=== PATIENT | male | born 1965 | race Caucasian/White ===

== ENCOUNTER 2019-01-30 05:17 | Inpatient (IN) | payer MEDICAID ==
[2019-01-29 15:09] LABS: BASOPHILS % (AUTO) 0.5 % (0-1); EOSINOPHILS % (AUTO) 0.6 % (0-6); LYMPHOCYTES # (AUTO) 2.1 X10'3 (1.1-4.8); LYMPHOCYTES % (AUTO) 31.3 % (21-51); MEAN CORPUSCULAR HEMOGLOBIN 28.5 PG (27.0-31.0); MEAN CORPUSCULAR HGB CONC 33.9 g/dL (33.0-36.5); MEAN CORPUSCULAR VOLUME 83.9 FL (78-98); MEAN PLATELET VOLUME 7.3 FL (7.4-10.4); MONOCYTES # (AUTO) 0.4 X10'3 (0-0.9); MONOCYTES % (AUTO) 6.1 % (2-12); NEUTROPHILS # (AUTO) 4.2 X10'3 (1.8-7.7); NEUTROPHILS % (AUTO) 61.5 % (42-75); PRE OP HEMATOCRIT 42.7 % (42.0-52.0); PRE OP HEMOGLOBIN 14.5 g/dL (14.0-17.9); PRE OP PLATELET COUNT 272 X10'3 (140-440); RED BLOOD COUNT 5.08 X10'6 (4.70-6.10); RED CELL DISTRIBUTION WIDTH 14.2 % (11.5-14.5)
[2019-01-29 15:16] LABS: PRE OP PROTIME 10.1 SECONDS (9.0-12.0)
[2019-01-29 15:22] LABS: ALBUMIN 4.2 G/DL (3.4-5.0); ALBUMIN/GLOBULIN RATIO 1.2 (1.1-1.5); ALKALINE PHOSPHATASE 66 IU/L (46-116); BLOOD UREA NITROGEN 18 MG/DL (7-18); BUN/CREATININE RATIO 16.2 (5.4-32.0); CHLORIDE 105 MMOL/L (99-107); CREATININE 1.11 MG/DL (0.60-1.10); PRE OP ALT 36 U/L (30-65); PRE OP ANION GAP 11 (8-16); PRE OP AST 21 U/L (10-37); PRE OP BILIRUB, TOTAL 0.9 MG/DL (0.0-1.0); PRE OP GLUCOSE 91 MG/DL (70-104); PRE OP POTASSIUM 3.7 MMOL/L (3.4-5.1); PRE OP SODIUM 142 MMOL/L (135-145); TOTAL CARBON DIOXIDE 25.6 MMOL/L (24-32); TOTAL PROTEIN 7.8 G/DL (6.4-8.2); eGFR 69 ML/MIN
[~2019-01-30] VITALS: Ht 188 cm; Wt 135.6 kg
[2019-01-30] VITALS (16 sets, daily range): BP systolic 104–195; BP diastolic 50–112
[~2019-01-30 05:17] MED LIST: LISI40TA4 PO; LORA1TAB PO; NICO-731 TOP
[2019-01-30] MEDS ORDERED: famotidine 20mg tablet PO ONE (05:30)
[2019-01-30] MEDS ORDERED: ceFAZolin 1GM/D5W- ADD-VANTAGE 50 ML IV ONE (05:30)
[2019-01-30] MEDS ORDERED: cefazolin/dext.iso 2gm/50ml 50 ML IV ONE (05:30)
[2019-01-30] MEDS ORDERED: albuterol 2.5 MG/3 ML nebule NEB ONE (05:30)
[2019-01-30] MEDS ORDERED: LIDOcaine 1% (10mg/ml) 2ml vial ONE (06:04)
[2019-01-30] MEDS: ringers solution, lacted 1,000 ML IV SCH (06:11)
[2019-01-30] MEDS ORDERED: pneumococcal 23-VAL P-sac vacc 25 mcg/0.5ml vial IMVAC ONE (07:15)
[2019-01-30] MEDS ORDERED: MIDAZolam 5mg/5ml vial ONE (09:02)
[2019-01-30] MEDS ORDERED: fentaNYL /PF 50mcg/ml 5ml ampule ONE ×2 (09:03)
[2019-01-30] MEDS ORDERED: LIDOcaine 2% (20mg/ml) 5ml vial ONE (09:03)
[2019-01-30] MEDS ORDERED: rocuronium 10mg/ml inj IV ONE (09:03)
[2019-01-30] MEDS ORDERED: propofol inj 20 ML IV ONE (09:03)
[2019-01-30] MEDS ORDERED: neostigmine methylsulfate 1 MG/ML 10ml vial ONE (09:25)
[2019-01-30] MEDS ORDERED: sevoflurane 250ml liquid IH ONE (09:25)
[2019-01-30] MEDS ORDERED: glycopyrrolate 0.2mg/ml inj ONE (09:25)
[2019-01-30] MEDS ORDERED: ondansetron/PF 4mg/2ml inj ONE (09:25)
[2019-01-30] MEDS ORDERED: ringers solution, lacted 1,000 ML IV SCH (09:29)
[2019-01-30] MEDS ORDERED: ondansetron/PF 4mg/2ml inj IV PRN ×2 (09:30→14:30)
[2019-01-30] MEDS ORDERED: proCHLORperazine 10 MG/2 ml inj IV PRN (09:30)
[2019-01-30] MEDS ORDERED: morphine 4 MG/ML inj SYRINge IV PRN ×4 (09:30→14:30)
[2019-01-30] MEDS ORDERED: meperidine/PF 25mg/ml syringe IV PRN ×3 (09:30)
[2019-01-30] MEDS ORDERED: dexamethasone sod phosphate 4mg/ml inj. ONE (10:35)
[2019-01-30] MEDS ORDERED: ePHEDrine 50MG/ML INJ. ONE (10:35)
[2019-01-30] MEDS ORDERED: BUPIVAcaine 0.5% inj/PF 30 ML ONE (11:09)
[2019-01-30] MEDS ORDERED: labetalol 20mg/4ml (5mg/ml) syringe IV ONE (11:24)
[2019-01-30] MEDS ORDERED: pancuronium br 1mg/ml inj IV ONE (13:04)
[2019-01-30] MEDS ORDERED: morphine 10mg/ml inj. ONE (13:30)
[2019-01-30] MEDS ORDERED: BUPIVAcaine/PF 2.5 mg/ml (0.25%) 30ml vial ONE (13:37)
[2019-01-30] MEDS ORDERED: acetaminophen 1,000mg/100ml IV 100 ML IV ONE (14:11)
[2019-01-30] MEDS ORDERED: ketorolac trometh. 30mg/ml inj. ONE (14:12)
[2019-01-30] MEDS ORDERED: NALOXONE IV PRN (14:15)
[2019-01-30] MEDS ORDERED: NS IV PRN (14:15)
[2019-01-30] MEDS ORDERED: MORPHINE EPI SCH ×3 (14:20→23:17)
[2019-01-30] MEDS ORDERED: [UNRECOGNIZED DRUG - OTHER] EPI SCH ×3 (14:20→23:17)
[2019-01-30] MEDS ORDERED: BUPIVACAINE EPI SCH ×3 (14:20→23:17)
[2019-01-30] MEDS ORDERED: naloxone 0.4 mg/ml inj IV PRN (14:30)
[2019-01-30] MEDS ORDERED: CADD PCA waste documentation MC PRN (14:30)
[2019-01-30] MEDS ORDERED: metoclopramide 5 mg/ml inj IV PRN (14:30)
[2019-01-30] MEDS ORDERED: albuterol 2.5 MG/3 ML nebule NEB PRN (14:30)
--- NOTE | 2019-01-30 14:40 | NUR ---
ADMITTED TO PACU FROM OR ACCOMPANIED BY ANESTHESIA. INTIAL PHYSICAL ASSESSMENT DONE AND RECORDED. AWAKE AND RESPONSE ON ARRIVE YO PACU, REPORT RECEIVED FROM ANESTHESIA.
[2019-01-30 14:55] LABS: ABG BASE EXCESS -3.9 mmol/L (-2.0-3.0); ABG HCO3 21.5 mmol/L (22.0-26.0); ABG OXYGEN SATURATION 98.4 % (95-98); ABG PCO2 (T) 40.4 mmHg (35.0-45.0); ABG PH (T) 7.344 (7.350-7.450); ABG PO2 (T) 136.6 mmHg (83-108); FCOHb 0.4 % (0.5-1.5); FLOW 10 L/min; FMetHb 0.2 % (0.3-1.12); FO2Hb 97.8 % (94-100); RESPIRATORY RATE (OBSERVED) 12 b/min; TOTAL HEMOGLOBIN 14.2 G/dl (14.0-17.9)
[2019-01-30] MEDS: ceFAZolin 1GM/D5W- ADD-VANTAGE 50 ML IV SCH (14:59)
--- NOTE | 2019-01-30 15:16 | NUR ---
Patient is coming to room ICU 2038. I have received report from Valentina OLIVA and had the opportunity to ask questions and assume patient care.
--- NOTE | 2019-01-30 15:40 | NUR ---
PACU DISCHARGE CRITERIA MET, REPORT GIVEN TO ICU. DENIES PAIN OR DISCOMFORT AT THIS TIME, TRANSFERRED TO ROOM IN STABLE GOOD CONDITION.
[2019-01-30] MEDS: potassium Cl 20mEq in D5-NS 1,000 ML IV SCH (17:00)
--- NOTE | 2019-01-30 18:22 | NUR ---
Problems reprioritized. Patient report given, questions answered & plan of care reviewed with Jo OLIVA.
--- NOTE | 2019-01-30 18:22 | NUR ---
Patient in room ICU 2038. I have received report from Alejandra OLIVA and had the opportunity to ask questions and assume patient care. Pt received awake alert & oriented. On room air with saturations 97%. Right lateral chest tubes x2 , tubes secure & sutures noted. Dressing is clean & Dry. Right lateral chest incision with occlusive dressing. Epidural cath is intact and taped secure to back. Duramorph drip @ 12ml/hr. Right radial arterial line is intact/zeroed with good wave form. Fingers without numbness and remain warm. Right IJ central line is transduced, line zeroed. IVF infusing via right IJ central line. Indwelling christy cath drains clear yellow urine. Pt tolerating diet and will advance to regular diet tray when it arrives.
[2019-01-30] MEDS ORDERED: ketorolac trometh. 30mg/ml inj. IM PRN (18:59)
[2019-01-30] MEDS: gabapentin 300mg capsule PO SCH (19:16)
[2019-01-30] MEDS: docusate sod 100mg capsule PO SCH (19:17)
[2019-01-30] MEDS ORDERED: ketorolac trometh. 30mg/ml inj. IM SCH (20:00)
[2019-01-30] MEDS: HYDROcodone/acetaminophen 10/325mg tab PO PRN (20:27)
[2019-01-30] MEDS ORDERED: LORazepam 2 mg/ml vial IV PRN (20:45)
[2019-01-30] MEDS: hydrALAZINE 20mg/ml inj. IV PRN (21:10)
[2019-01-30] MEDS: LORazepam 1 MG tablet PO PRN (21:18)
[2019-01-31] VITALS (24 sets, daily range): BP systolic 90–167; BP diastolic 66–93
[2019-01-31] MEDS: nicotine 14mg patch - 24hr TD SCH ×2 (00:10→07:25)
[2019-01-31] MEDS: ceFAZolin 1GM/D5W- ADD-VANTAGE 50 ML IV SCH (00:10)
[2019-01-31] MEDS: HYDROcodone/acetaminophen 10/325mg tab PO PRN ×2 (00:13→04:19)
[2019-01-31 03:32] LABS: BASOPHILS % (AUTO) 0.3 % (0-1); EOSINOPHILS % (AUTO) 0 % (0-6); HEMATOCRIT 36.7 % (42.0-52.0); HEMOGLOBIN 12.6 g/dl (14.0-17.9); LYMPHOCYTES # (AUTO) 1.2 X10'3 (1.1-4.8); LYMPHOCYTES % (AUTO) 10.9 % (21-51); MEAN CORPUSCULAR HEMOGLOBIN 29.1 PG (27.0-31.0); MEAN CORPUSCULAR HGB CONC 34.4 g/dL (33.0-36.5); MEAN CORPUSCULAR VOLUME 84.7 FL (78-98); MEAN PLATELET VOLUME 7.1 FL (7.4-10.4); MONOCYTES # (AUTO) 0.8 X10'3 (0-0.9); MONOCYTES % (AUTO) 7.1 % (2-12); NEUTROPHILS # (AUTO) 8.8 X10'3 (1.8-7.7); NEUTROPHILS % (AUTO) 81.7 % (42-75); PLATELET COUNT 235 X10'3 (140-440); RED BLOOD COUNT 4.33 X10'6 (4.70-6.10); RED CELL DISTRIBUTION WIDTH 14.3 % (11.5-14.5); WHITE BLOOD COUNT 10.8 X10'3 (4.5-11.0)
[2019-01-31 03:42] LABS: ALBUMIN 3.2 G/DL (3.4-5.0); ANION GAP 8 (8-16); BLOOD UREA NITROGEN 15 MG/DL (7-18); BUN/CREATININE RATIO 14.2 (5.4-32.0); CHLORIDE 106 MMOL/L (99-107); CREATININE 1.06 MG/DL (0.60-1.10); GLUCOSE 127 MG/DL (70-104); MAGNESIUM 1.8 MG/DL (1.5-2.4); PHOSPHORUS 2.8 MG/DL (2.3-4.5); POTASSIUM 3.8 MMOL/L (3.5-5.1); SODIUM 140 MMOL/L (135-145); TOTAL CARBON DIOXIDE 25.7 MMOL/L (24-32); eGFR 73 ML/MIN
[2019-01-31] MEDS: potassium Cl 20mEq in D5-NS 1,000 ML IV SCH (05:40)
--- NOTE | 2019-01-31 06:30 | NUR ---
Problems reprioritized. Patient report given, questions answered & plan of care reviewed with Alejandra OLIVA.
[2019-01-31] MEDS: hydrALAZINE 20mg/ml inj. IV PRN (06:54)
[2019-01-31] MEDS: ketorolac trometh. 30mg/ml inj. IV PRN (06:59)
[2019-01-31] MEDS: HYDROmorphone/NS 1 mg/ml CADD 50 ML IV SCH ×9 (07:09→23:00)
[2019-01-31] MEDS: docusate sod 100mg capsule PO SCH ×2 (07:21→20:53)
[2019-01-31] MEDS: gabapentin 300mg capsule PO SCH ×2 (07:22→20:53)
[2019-01-31] MEDS: magnesium oxide 400mg tablet PO SCH ×2 (07:27→16:23)
--- NOTE | 2019-01-31 09:00 | NUR ---
arterial line discontinued; canula intact. pressure held for 5min. pt tolerated well.
--- NOTE | 2019-01-31 10:00 | NUR ---
Epidural D/C'd per Dr. Stone
--- NOTE | 2019-01-31 11:07 | NUR ---
Christy temperature reading 38.7, took temporal and oral temp and they were 36.8 and 36.9 respectively. Disconnected christy temperature, will no longer use.
[2019-01-31] MEDS ORDERED: albumin (Human) 5% 250ml 250 ML IV ONE ×2 (14:40)
[2019-01-31] MEDS: LORazepam 1 MG tablet PO PRN (16:23)
--- NOTE | 2019-01-31 18:30 | NUR ---
Patient in room ICU 2038. I have received report from Alejandra OLIVA and had the opportunity to ask questions and assume patient care.
--- NOTE | 2019-01-31 18:30 | NUR ---
Patient in room ICU 2038. I have received report from Alejandra OLIVA and had the opportunity to ask questions and assume patient care. Pt received asleep. Arousible & oriented to person, place , date, & is aware of current president. Right IJ is transduced/zeroed and CVP reads 10 with good waveform. TPN is infusing at 30ml/hr. Via Right IJ. Left AC saline lock is occluded as well as the right forearm saline lock and the left AC saline lock. Pt is on oxygen at 2L NC and is saturating 98%. Lungs with crackles in right upper anterior, clear to upper left anterior otherwise diminished breath sounds. Abdomen is soft/tender with bowel sounds noted. Abdominal dressing is an ABD pad with serous drainage Edema is generalized pitting. Villatoro cath with dark yellow urine. Addendum: 01/31/19 at 1910 by Jo Tinoco RN ERROR, charted on wrong patient.
[2019-01-31] MEDS: ringers solution, lacted 1,000 ML IV SCH (22:21)
[2019-02-01] VITALS (24 sets, daily range): BP systolic 85–144; BP diastolic 53–97
[2019-02-01] MEDS: HYDROmorphone/NS 1 mg/ml CADD 50 ML IV SCH ×12 (01:00→22:57)
[2019-02-01 03:26] LABS: BASOPHILS # (AUTO) 0.1 X10'3 (0-0.2); BASOPHILS % (AUTO) 0.5 % (0-1); EOSINOPHILS % (AUTO) 0.2 % (0-6); HEMATOCRIT 34.4 % (42.0-52.0); HEMOGLOBIN 11.5 g/dl (14.0-17.9); LYMPHOCYTES # (AUTO) 1.2 X10'3 (1.1-4.8); LYMPHOCYTES % (AUTO) 10.7 % (21-51); MEAN CORPUSCULAR HEMOGLOBIN 28.6 PG (27.0-31.0); MEAN CORPUSCULAR HGB CONC 33.5 g/dL (33.0-36.5); MEAN CORPUSCULAR VOLUME 85.5 FL (78-98); MEAN PLATELET VOLUME 7.3 FL (7.4-10.4); MONOCYTES # (AUTO) 0.7 X10'3 (0-0.9); MONOCYTES % (AUTO) 6.7 % (2-12); NEUTROPHILS # (AUTO) 9.1 X10'3 (1.8-7.7); NEUTROPHILS % (AUTO) 81.9 % (42-75); PLATELET COUNT 213 X10'3 (140-440); RED BLOOD COUNT 4.03 X10'6 (4.70-6.10); RED CELL DISTRIBUTION WIDTH 14.8 % (11.5-14.5); WHITE BLOOD COUNT 11.1 X10'3 (4.5-11.0)
[2019-02-01 03:43] LABS: ALANINE AMINOTRANSFERASE 36 U/L (12-78); ALBUMIN 3.1 G/DL (3.4-5.0); ALKALINE PHOSPHATASE 49 IU/L (46-116); ANION GAP 7 (8-16); ASPARTATE AMINO TRANSFERASE 43 U/L (10-37); BILIRUBIN,TOTAL 1.3 MG/DL (0.1-1.0); BLOOD UREA NITROGEN 21 MG/DL (7-18); CHLORIDE 106 MMOL/L (99-107); CREATININE 1.62 MG/DL (0.60-1.10); GLUCOSE 111 MG/DL (70-104); MAGNESIUM 2.1 MG/DL (1.5-2.4); PHOSPHORUS 2.8 MG/DL (2.3-4.5); POTASSIUM 4.2 MMOL/L (3.5-5.1); SODIUM 139 MMOL/L (135-145); TOTAL CARBON DIOXIDE 25.8 MMOL/L (24-32); TOTAL PROTEIN 6.1 G/DL (6.4-8.2); eGFR 45 ML/MIN
--- NOTE | 2019-02-01 06:30 | NUR ---
Patient in room ICU 2038. I have received report from KERRI OLIVA and had the opportunity to ask questions and assume patient care.
--- NOTE | 2019-02-01 06:32 | NUR ---
Problems reprioritized. Patient report given, questions answered & plan of care reviewed with Shauna OLIVA. Addendum: 02/01/19 at 0634 by Jo Tinoco RN Report given to Isabela OLIVA.
[2019-02-01] MEDS: docusate sod 100mg capsule PO SCH ×2 (08:06→20:53)
[2019-02-01] MEDS: magnesium oxide 400mg tablet PO SCH ×3 (08:06→16:13)
[2019-02-01] MEDS: gabapentin 300mg capsule PO SCH (08:06)
[2019-02-01] MEDS: nicotine 14mg patch - 24hr TD SCH (08:09)
--- NOTE | 2019-02-01 10:53 | NUR ---
Patient in room ICU 2038. I have received report from KERRI OLIVA and had the opportunity to ask questions and assume patient care.
--- NOTE | 2019-02-01 12:22 | NUR ---
pt has been sinus tachy usually in mid 110s. at times when pt is doing ADLs from chair it is low 120s. Dr Gamino rounded and asked to start lopressor PO BID 25mg. orders entered. also got permission from Hanny to stop blood sugar checks, pt has been normal. instructed to take christy out. said possible transfer tomorrow
[2019-02-01] MEDS: metoprolol tartrate 25mg tablet PO SCH ×2 (12:45→20:00)
[2019-02-01] MEDS: LORazepam 1 MG tablet PO PRN (17:09)
--- NOTE | 2019-02-01 18:27 | NUR ---
Problems reprioritized. Patient report given, questions answered & plan of care reviewed with KERRI OLIVA.
--- NOTE | 2019-02-01 18:30 | NUR ---
Patient in room ICU 2038. I have received report from Isabela RN and had the opportunity to ask questions and assume patient care. Pt asleep. On oxygen @ 2L NC. Saturation is 93%. Right IJ central line is transduced/zeroed. Right lateral thoracotomy incision with occlusive dressing, incisional line with old drainage under dressing. Chest tubes x 2 to right upper lateral chest are secure. Purse string sutures noted. Chest tubes are draining to oasis drain system connected to wall suction @ 20 cm. Drainage is serosanguineous. Left hand saline lock is intact.
[2019-02-01] MEDS: ketorolac trometh. 30mg/ml inj. IV PRN (19:15)
--- NOTE | 2019-02-01 19:15 | NUR ---
Pt C/O burning sensation to right lateral chest incisional site/axilla. 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 Laughing became increasingly very disturbing and very loud turning into a loud continuous cry. Pt placed on simple mask @6L oxygen to maintain saturations. Very anxious due to awakening to a burning sensation at surgical site. Chest tubes are intact without crepitus. Incisional dressing unchanged. Pt encouraged to use his CADD pump and reached the timed lock out. Toradol given to relieve discomfort. Ice packs to right lateral chest incision site.
--- NOTE | 2019-02-01 20:00 | NUR ---
Toradol effective in relieving patients discomfort. Pain down to 3/10.
[2019-02-01] MEDS: potassium Cl 20mEq in D5-NS 1,000 ML IV SCH (20:54)
--- NOTE | 2019-02-01 22:00 | NUR ---
Pain has subsided 0/10 at this time. Pt participating in bed bath using bath wipes & CHG wipes as directed, minimal assistance required. Pt is able to actively turn in bed splinting surgical incision with small pillow. Does well. Complete linen/gown changed at this time.
--- NOTE | 2019-02-01 23:00 | NUR ---
Asleep resting soundly. No distress.
[2019-02-02] VITALS (18 sets, daily range): BP systolic 95–146; BP diastolic 55–95
[2019-02-02] MEDS: magnesium oxide 400mg tablet PO SCH ×4 (00:19→23:53)
[2019-02-02] MEDS: HYDROmorphone/NS 1 mg/ml CADD 50 ML IV SCH ×12 (01:00→23:00)
[2019-02-02 02:49] LABS: BASOPHILS % (AUTO) 0.3 % (0-1); EOSINOPHILS % (AUTO) 0.4 % (0-6); HEMATOCRIT 31.3 % (42.0-52.0); HEMOGLOBIN 10.5 g/dl (14.0-17.9); LYMPHOCYTES # (AUTO) 1.3 X10'3 (1.1-4.8); LYMPHOCYTES % (AUTO) 13.1 % (21-51); MEAN CORPUSCULAR HEMOGLOBIN 28.9 PG (27.0-31.0); MEAN CORPUSCULAR HGB CONC 33.6 g/dL (33.0-36.5); MEAN PLATELET VOLUME 7.3 FL (7.4-10.4); MONOCYTES # (AUTO) 0.7 X10'3 (0-0.9); MONOCYTES % (AUTO) 7.5 % (2-12); NEUTROPHILS # (AUTO) 7.7 X10'3 (1.8-7.7); NEUTROPHILS % (AUTO) 78.7 % (42-75); PLATELET COUNT 186 X10'3 (140-440); RED BLOOD COUNT 3.64 X10'6 (4.70-6.10); RED CELL DISTRIBUTION WIDTH 14.5 % (11.5-14.5); WHITE BLOOD COUNT 9.8 X10'3 (4.5-11.0)
[2019-02-02 02:59] LABS: ALANINE AMINOTRANSFERASE 29 U/L (12-78); ALBUMIN 2.6 G/DL (3.4-5.0); ALBUMIN/GLOBULIN RATIO 0.8 (1.1-1.5); ALKALINE PHOSPHATASE 53 IU/L (46-116); ANION GAP 6 (8-16); ASPARTATE AMINO TRANSFERASE 37 U/L (10-37); BILIRUBIN,TOTAL 0.8 MG/DL (0.1-1.0); BLOOD UREA NITROGEN 19 MG/DL (7-18); BUN/CREATININE RATIO 13.4 (5.4-32.0); CHLORIDE 107 MMOL/L (99-107); CREATININE 1.42 MG/DL (0.60-1.10); GLUCOSE 121 MG/DL (70-104); MAGNESIUM 2.3 MG/DL (1.5-2.4); POTASSIUM 4.7 MMOL/L (3.5-5.1); SODIUM 142 MMOL/L (135-145); TOTAL PROTEIN 5.8 G/DL (6.4-8.2); eGFR 52 ML/MIN
--- NOTE | 2019-02-02 05:53 | NUR ---
Restful night. Pt slept for long intervals pain free. Pain 0-3/10 while on Dilaudid CADD pump. Actively assists in repositioning utilizing pillow to splint incision. Chest tube output 180 for assistant shift supervisor, serosanguineous. Rhythm is sinus HR 86-98 most of the shift.
--- NOTE | 2019-02-02 06:30 | NUR ---
Problems reprioritized. Patient report given, questions answered & plan of care reviewed with Indiana OLIVA.
--- NOTE | 2019-02-02 06:30 | NUR ---
Patient in room ICU 2038. I have received report from KERRI OLIVA and had the opportunity to ask questions and assume patient care.
[2019-02-02] MEDS: nicotine 14mg patch - 24hr TD SCH (08:11)
[2019-02-02] MEDS: metoprolol tartrate 25mg tablet PO SCH ×2 (08:12→20:15)
[2019-02-02] MEDS: docusate sod 100mg capsule PO SCH ×2 (08:12→20:15)
--- NOTE | 2019-02-02 12:45 | NUR ---
Dr Gamino rounded and assessed pt. gave orders to transfer to surgical with tele and to discontinue central line.
[2019-02-02] MEDS: LORazepam 1 MG tablet PO PRN ×2 (12:53→20:15)
--- NOTE | 2019-02-02 17:30 | NUR ---
report called to Naya OLIVA
--- NOTE | 2019-02-02 17:57 | NUR ---
transferred pt to [facility] in wheelchair with another RN, pt tolerated well. surgical nurse was at bedside to receive pt.
--- NOTE | 2019-02-02 20:00 | NUR ---
Pt temp 100.5. Encouraged use of IS and flutter to reduce temp. Will reassess.
--- NOTE | 2019-02-02 22:21 | NUR ---
Replaced tegaderm over right CL site; dressing was coming undone.
[2019-02-03] VITALS: BP 140/71
[2019-02-03] MEDS: HYDROmorphone/NS 1 mg/ml CADD 50 ML IV SCH ×12 (01:00→23:00)
--- NOTE | 2019-02-03 06:03 | NUR ---
Chest tube was partially disconnected at banding site. Chest tube was bubbling and accordion suction indicator was fluctuating with each breath. Tightened tubing at banding junction. Bubbling stopped and the accordion filled out to triangle indicator with no further fluctuation. No crepitus noted on further assessment.
--- NOTE | 2019-02-03 06:40 | NUR ---
Problems reprioritized. Patient report given, questions answered & plan of care reviewed with PJ Zamudio.
[2019-02-03 08:00] VITALS: BP 134/78
[2019-02-03] MEDS: nicotine 14mg patch - 24hr TD SCH (08:45)
[2019-02-03] MEDS: magnesium oxide 400mg tablet PO SCH ×2 (08:45→16:35)
[2019-02-03] MEDS: metoprolol tartrate 25mg tablet PO SCH ×2 (08:45→20:26)
[2019-02-03] MEDS: docusate sod 100mg capsule PO SCH ×2 (08:45→20:26)
[2019-02-03 11:00] VITALS: BP 123/75
[2019-02-03 12:41] LABS: ALBUMIN 2.7 G/DL (3.4-5.0); ANION GAP 6 (8-16); BLOOD UREA NITROGEN 11 MG/DL (7-18); BUN/CREATININE RATIO 10.7 (5.4-32.0); CALCIUM 8.4 MG/DL (8.5-10.1); CHLORIDE 102 MMOL/L (99-107); CREATININE 1.03 MG/DL (0.60-1.10); GLUCOSE 112 MG/DL (70-104); POTASSIUM 4.2 MMOL/L (3.5-5.1); SODIUM 138 MMOL/L (135-145); TOTAL CARBON DIOXIDE 30.2 MMOL/L (24-32); eGFR 75 ML/MIN
[2019-02-03] MEDS ORDERED: acetaminophen 325mg tablet PO PRN (13:15)
[2019-02-03 18:00] VITALS: BP 149/91
--- NOTE | 2019-02-03 18:10 | NUR ---
Patient in room [facility] 357. I have received report from PJ Zamudio and had the opportunity to ask questions and assume patient care.
[2019-02-03] MEDS: potassium Cl 20mEq in D5-NS 1,000 ML IV SCH (18:27)
--- NOTE | 2019-02-03 19:24 | NUR ---
Patient in room [facility] 357. I have received report from Belkys Watson RN and Belkys Barrow RN and had the opportunity to ask questions and assume patient care. Addendum: 02/04/19 at 0158 by Tatiana Salmeron RN Incorrect patient
--- NOTE | 2019-02-03 19:44 | NUR ---
Prune juice provided to pt to promote BM
[2019-02-04 00:02] VITALS: BP 132/83
[2019-02-04] MEDS: HYDROmorphone/NS 1 mg/ml CADD 50 ML IV SCH ×8 (01:00→15:00)
[2019-02-04] MEDS: magnesium oxide 400mg tablet PO SCH ×4 (01:05→23:56)
--- NOTE | 2019-02-04 05:46 | NUR ---
DC'ed central line dressing changed with 2x2 gauze and tegaderm.
--- NOTE | 2019-02-04 06:10 | NUR ---
Patient in room [facility]. I have received report from Miranda Maldonado RN & Tatiana RN and had the opportunity to ask questions and assume patient care.
--- NOTE | 2019-02-04 06:40 | NUR ---
Problems reprioritized. Patient report given, questions answered & plan of care reviewed with PJ Pineda.
[2019-02-04 07:24] VITALS: BP 139/88
[2019-02-04] MEDS: docusate sod 100mg capsule PO SCH ×2 (08:37→20:08)
[2019-02-04] MEDS: nicotine 14mg patch - 24hr TD SCH (08:38)
[2019-02-04] MEDS: metoprolol tartrate 25mg tablet PO SCH ×2 (08:38→20:08)
[2019-02-04] MEDS: enoxaparin 40mg/0.4ml syringe SUBCUT SCH (08:41)
--- NOTE | 2019-02-04 11:29 | NUR ---
Initial: Pt s/p right thoracotomy and upper lobectomy for non-small cell lung cancer with chest tube placement, doing well post surgery per MD notes. Pt currently on regular diet documented with 100% PO intake meeting nutrient needs. LBM 01/30, receiving routine Colace. D/w dietary to send prunes with dinner tonight. No nutrition diagnosis at this time. Will continue to follow. Recommendations: 1) Continue regular diet 2) Continue routine bowel care; monitor need for additional 3) Wt per rx Addendum: 02/04/19 at [address] Amended: Links added.
[2019-02-04 11:31] VITALS: BP 140/93
[2019-02-04] MEDS ORDERED: furosemide 40mg/4ml inj IV SCH (13:20)
--- NOTE | 2019-02-04 13:30 | NUR ---
Informed Dr. Gamino pt desatted to 88% and was placed back on 2L via mask because pt prefers mask over nasal cannula. Checked Sao2 on RA and was 92% with Dr. Gamino at bedside. MD in to see patient, Chest tubes d/c'd without incident by Dr. Gamino. Pt tolerated procedure well. MD ordered chest xray for tomorrow AM, D/C CADD in 2hrs and change to norco 10/325 q4h prn pain, lasix 40mg IV q8h x3 doses, CBC BMP and mg for tomorrow AM, and to place back on O2 2L.
[2019-02-04] MEDS: furosemide 40mg/4ml inj IV SCH ×2 (13:49→20:08)
[2019-02-04] MEDS: LORazepam 1 MG tablet PO PRN (16:13)
--- NOTE | 2019-02-04 16:30 | NUR ---
Informed Dr. Gamino of SaO2-88% on RA. Placed on 2L NC now SaO2-90%. MD ordered chest xray. Will continue to monitor.
[2019-02-04 18:00] VITALS: BP 125/83
--- NOTE | 2019-02-04 18:40 | NUR ---
Problems reprioritized. Patient report given, questions answered & plan of care reviewed with PJ Jean.
[2019-02-04] MEDS: HYDROcodone/acetaminophen 10/325mg tab PO PRN ×2 (20:09→23:56)
[2019-02-05] VITALS: BP 98/60
[2019-02-05] MEDS: ketorolac trometh. 30mg/ml inj. IV PRN (03:08)
[2019-02-05] MEDS: furosemide 40mg/4ml inj IV SCH (05:39)
[2019-02-05 05:41] LABS: BASOPHILS % (AUTO) 0.5 % (0-1); EOSINOPHILS # (AUTO) 0.2 X10'3 (0-0.9); EOSINOPHILS % (AUTO) 2.1 % (0-6); HEMATOCRIT 33.8 % (42.0-52.0); HEMOGLOBIN 11.4 g/dl (14.0-17.9); LYMPHOCYTES % (AUTO) 14.2 % (21-51); MEAN CORPUSCULAR HEMOGLOBIN 28.4 PG (27.0-31.0); MEAN CORPUSCULAR HGB CONC 33.9 g/dL (33.0-36.5); MEAN CORPUSCULAR VOLUME 83.9 FL (78-98); MEAN PLATELET VOLUME 7.4 FL (7.4-10.4); MONOCYTES # (AUTO) 0.5 X10'3 (0-0.9); MONOCYTES % (AUTO) 7.4 % (2-12); NEUTROPHILS # (AUTO) 5.6 X10'3 (1.8-7.7); NEUTROPHILS % (AUTO) 75.8 % (42-75); PLATELET COUNT 288 X10'3 (140-440); RED BLOOD COUNT 4.02 X10'6 (4.70-6.10); WHITE BLOOD COUNT 7.3 X10'3 (4.5-11.0)
[2019-02-05 06:22] LABS: ANION GAP 9 (8-16); BLOOD UREA NITROGEN 11 MG/DL (7-18); BUN/CREATININE RATIO 10.6 (5.4-32.0); CALCIUM 9.3 MG/DL (8.5-10.1); CHLORIDE 101 MMOL/L (99-107); CREATININE 1.04 MG/DL (0.60-1.10); GLUCOSE 107 MG/DL (70-104); MAGNESIUM 2.6 MG/DL (1.5-2.4); SODIUM 140 MMOL/L (135-145); TOTAL CARBON DIOXIDE 30.4 MMOL/L (24-32); eGFR 74 ML/MIN
--- NOTE | 2019-02-05 06:39 | NUR ---
Problems reprioritized. Patient report given, questions answered & plan of care reviewed with PJ Lopez.
[2019-02-05 07:00] VITALS: BP 111/74
[2019-02-05] MEDS: docusate sod 100mg capsule PO SCH ×2 (07:05→22:03)
[2019-02-05] MEDS: metoprolol tartrate 25mg tablet PO SCH ×2 (07:05→22:04)
[2019-02-05] MEDS: magnesium oxide 400mg tablet PO SCH ×2 (07:05→15:35)
[2019-02-05] MEDS: enoxaparin 40mg/0.4ml syringe SUBCUT SCH (07:06)
[2019-02-05] MEDS: nicotine 14mg patch - 24hr TD SCH (07:06)
[2019-02-05 11:26] VITALS: BP 119/79
[2019-02-05] MEDS: LORazepam 1 MG tablet PO PRN ×2 (14:05→22:04)
--- NOTE | 2019-02-05 19:10 | NUR ---
Problems reprioritized. Patient report given, questions answered & plan of care reviewed with Neva Hooks RN.
--- NOTE | 2019-02-05 19:11 | NUR ---
Patient in room [facility] 360. I have received report from GODWIN RN AND DOMINIQUE RN and had the opportunity to ask questions and assume patient care.
[2019-02-05] MEDS: HYDROcodone/acetaminophen 10/325mg tab PO PRN (19:16)
[2019-02-05 20:00] VITALS: BP 140/84
[2019-02-06] VITALS: BP 129/83
[2019-02-06] MEDS: magnesium oxide 400mg tablet PO SCH ×3 (00:37→16:32)
--- NOTE | 2019-02-06 06:30 | NUR ---
Problems reprioritized. Patient report given, questions answered & plan of care reviewed with CALVIN OLIVA.
[2019-02-06 06:32] LABS: ALBUMIN 2.7 G/DL (3.4-5.0); ANION GAP 7 (8-16); BLOOD UREA NITROGEN 10 MG/DL (7-18); CALCIUM 8.7 MG/DL (8.5-10.1); CHLORIDE 101 MMOL/L (99-107); GLUCOSE 100 MG/DL (70-104); POTASSIUM 4.2 MMOL/L (3.5-5.1); SODIUM 140 MMOL/L (135-145); TOTAL CARBON DIOXIDE 32.5 MMOL/L (24-32); eGFR 78 ML/MIN
[2019-02-06 07:35] VITALS: BP 128/79
[2019-02-06] MEDS: nicotine 14mg patch - 24hr TD SCH (08:26)
[2019-02-06] MEDS: docusate sod 100mg capsule PO SCH ×2 (08:27→21:13)
[2019-02-06] MEDS: metoprolol tartrate 25mg tablet PO SCH ×2 (08:27→21:13)
[2019-02-06] MEDS: enoxaparin 40mg/0.4ml syringe SUBCUT SCH (08:28)
[2019-02-06] MEDS: furosemide 40mg/4ml inj IV SCH ×2 (08:29→21:14)
--- NOTE | 2019-02-06 11:00 | NUR ---
Dr conley rounding on patient. He would like the magnesium to continue to be given. aware of mg 2.6.
[2019-02-06 11:38] VITALS: BP 133/86
--- NOTE | 2019-02-06 11:49 | NUR ---
I have reviewed and agree with all medications administered and interventions performed by [facility] Student(CARMEN) Addendum: 02/06/19 at 1149 by Keila Josue RT Amended: Links added.
[2019-02-06] MEDS: LORazepam 1 MG tablet PO PRN ×2 (14:24→21:13)
--- NOTE | 2019-02-06 18:00 | NUR ---
Dr. conley said okay to leave incision open to air.
--- NOTE | 2019-02-06 18:20 | NUR ---
Problems reprioritized. Patient report given, questions answered & plan of care reviewed with PJ Moise.
--- NOTE | 2019-02-06 18:30 | NUR ---
Patient in room [facility] 360. I have received report from CALVIN OLIVA and had the opportunity to ask questions and assume patient care.
[2019-02-06 20:00] VITALS: BP 140/88
[2019-02-07] VITALS: BP 136/85
[2019-02-07] MEDS: magnesium oxide 400mg tablet PO SCH ×3 (00:59→15:54)
--- NOTE | 2019-02-07 06:09 | NUR ---
Problems reprioritized. Patient report given, questions answered & plan of care reviewed with CALVIN OLIVA.
[2019-02-07 07:00] VITALS: BP 130/82
[2019-02-07] MEDS: docusate sod 100mg capsule PO SCH ×2 (07:27→20:16)
[2019-02-07] MEDS: metoprolol tartrate 25mg tablet PO SCH ×2 (07:27→20:20)
[2019-02-07] MEDS: enoxaparin 40mg/0.4ml syringe SUBCUT SCH (07:29)
[2019-02-07] MEDS: nicotine 14mg patch - 24hr TD SCH (07:29)
[2019-02-07] MEDS: HYDROcodone/acetaminophen 10/325mg tab PO PRN ×2 (07:37→20:16)
[2019-02-07] MEDS: furosemide 40mg/4ml inj IV SCH ×2 (07:37→20:21)
--- NOTE | 2019-02-07 10:23 | NUR ---
Dr Gamino rounded and informed pt of the path results and plans for discharge soon. Pt is to f/u at Dr. Gamino's office and will be referred to oncologist from there. Pt stated wants to be off oxygen before going home, and MD agreed to a POC to wean as able off O2 w/ possible DC home by Saturday 02/10.
[2019-02-07 11:00] VITALS: BP 118/75
[2019-02-07 12:00] LABS: ALBUMIN 2.9 G/DL (3.4-5.0); ANION GAP 6 (8-16); BLOOD UREA NITROGEN 13 MG/DL (7-18); BUN/CREATININE RATIO 13.5 (5.4-32.0); CALCIUM 8.5 MG/DL (8.5-10.1); CHLORIDE 101 MMOL/L (99-107); CREATININE 0.96 MG/DL (0.60-1.10); GLUCOSE 101 MG/DL (70-104); SODIUM 141 MMOL/L (135-145); TOTAL CARBON DIOXIDE 33.9 MMOL/L (24-32); eGFR 82 ML/MIN
[2019-02-07] MEDS: LORazepam 1 MG tablet PO PRN (15:54)
[2019-02-07 18:00] VITALS: BP 148/89
--- NOTE | 2019-02-07 18:18 | NUR ---
Problems reprioritized. Patient report given, questions answered & plan of care reviewed with PJ Moise.
--- NOTE | 2019-02-07 18:30 | NUR ---
Patient in room [facility] 360. I have received report from CALVIN OLIVA and had the opportunity to ask questions and assume patient care.
[2019-02-08] VITALS: BP 116/71
[2019-02-08] MEDS: magnesium oxide 400mg tablet PO SCH ×4 (00:10→23:26)
--- NOTE | 2019-02-08 06:30 | NUR ---
Problems reprioritized. Patient report given, questions answered & plan of care reviewed with BALJINDER OLIVA.
--- NOTE | 2019-02-08 06:59 | NUR ---
Patient in room [facility] 360. I have received report from Rhonda OLIVA and had the opportunity to ask questions and assume patient care.
[2019-02-08 07:00] VITALS: BP 127/82
[2019-02-08] MEDS: furosemide 40mg/4ml inj IV SCH ×2 (07:38→20:27)
[2019-02-08] MEDS: metoprolol tartrate 25mg tablet PO SCH ×2 (07:38→20:26)
[2019-02-08] MEDS: nicotine 14mg patch - 24hr TD SCH (07:39)
[2019-02-08] MEDS: docusate sod 100mg capsule PO SCH ×2 (07:39→20:27)
[2019-02-08] MEDS: HYDROcodone/acetaminophen 10/325mg tab PO PRN ×3 (07:39→23:27)
[2019-02-08] MEDS: enoxaparin 40mg/0.4ml syringe SUBCUT SCH (07:40)
[2019-02-08 08:07] LABS: ALBUMIN 3.2 G/DL (3.4-5.0); ANION GAP 8 (8-16); BLOOD UREA NITROGEN 15 MG/DL (7-18); BUN/CREATININE RATIO 14.7 (5.4-32.0); CALCIUM 8.7 MG/DL (8.5-10.1); CHLORIDE 101 MMOL/L (99-107); CREATININE 1.02 MG/DL (0.60-1.10); GLUCOSE 101 MG/DL (70-104); POTASSIUM 4.1 MMOL/L (3.5-5.1); SODIUM 139 MMOL/L (135-145); TOTAL CARBON DIOXIDE 30.5 MMOL/L (24-32); eGFR 76 ML/MIN
[2019-02-08 11:00] VITALS: BP 134/85
[2019-02-08] MEDS: LORazepam 1 MG tablet PO PRN ×2 (11:58→20:33)
[2019-02-08 18:00] VITALS: BP 120/78
--- NOTE | 2019-02-08 18:37 | NUR ---
Problems reprioritized. Patient report given, questions answered & plan of care reviewed with Shu OLIAV.
--- NOTE | 2019-02-08 18:40 | NUR ---
Patient in room [facility] 360. I have received report from PJ Cavazos and had the opportunity to ask questions and assume patient care.
[2019-02-09] VITALS: BP 102/58
--- NOTE | 2019-02-09 06:34 | NUR ---
Patient in room [facility] 360. I have received report from Shu OLIVA and had the opportunity to ask questions and assume patient care.
--- NOTE | 2019-02-09 06:35 | NUR ---
Problems reprioritized. Patient report given, questions answered & plan of care reviewed with PJ Cavazos.
[2019-02-09 07:00] VITALS: BP 114/74
[2019-02-09] MEDS: furosemide 40mg/4ml inj IV SCH (07:14)
[2019-02-09] MEDS: magnesium oxide 400mg tablet PO SCH (07:15)
[2019-02-09] MEDS: metoprolol tartrate 25mg tablet PO SCH ×2 (07:15→21:34)
[2019-02-09] MEDS: docusate sod 100mg capsule PO SCH ×2 (07:15→21:34)
[2019-02-09] MEDS: nicotine 14mg patch - 24hr TD SCH (07:15)
[2019-02-09] MEDS: enoxaparin 40mg/0.4ml syringe SUBCUT SCH (07:16)
[2019-02-09] MEDS: HYDROcodone/acetaminophen 10/325mg tab PO PRN ×3 (07:19→21:37)
[2019-02-09 11:00] VITALS: BP 110/71
--- NOTE | 2019-02-09 15:06 | NUR ---
reassessment: Pt PO 75-100% meals meeting healing needs s/p lobectomy. M 02/08. Will continue to monitor. Recommendations: 1) Continue regular diet 2) routine bowel care 3) Wt per rx Addendum: 02/09/19 at [address] Amended: Links added.
--- NOTE | 2019-02-09 18:07 | NUR ---
Problems reprioritized. Patient report given, questions answered & plan of care reviewed with Jennifer OLIVA.
--- NOTE | 2019-02-09 18:54 | NUR ---
Patient in room [facility] 360. I have received report from Macy OLIVA and had the opportunity to ask questions and assume patient care.
[2019-02-09 19:00] VITALS: BP 114/70
[2019-02-10] VITALS: BP 113/70
[2019-02-10] MEDS: HYDROcodone/acetaminophen 10/325mg tab PO PRN ×3 (05:05→14:28)
--- NOTE | 2019-02-10 06:14 | NUR ---
Problems reprioritized. Patient report given, questions answered & plan of care reviewed with Isabela OLIVA.
--- NOTE | 2019-02-10 06:15 | NUR ---
Patient in room [facility]. I have received report from Jennifer OLIVA and had the opportunity to ask questions and assume patient care. Patient resting in bed, eager to discharge but states understanding that it may take time for Dr. Gamino to round and provide orders. Will continue to monitor.
[2019-02-10 06:57] LABS: ANION GAP 7 (8-16); BLOOD UREA NITROGEN 15 MG/DL (7-18); BUN/CREATININE RATIO 14.2 (5.4-32.0); CALCIUM 8.9 MG/DL (8.5-10.1); CHLORIDE 101 MMOL/L (99-107); CREATININE 1.06 MG/DL (0.60-1.10); GLUCOSE 97 MG/DL (70-104); MAGNESIUM 2.5 MG/DL (1.5-2.4); SODIUM 140 MMOL/L (135-145); TOTAL CARBON DIOXIDE 32.3 MMOL/L (24-32); eGFR 73 ML/MIN
[2019-02-10 07:40] VITALS: BP 125/81
[2019-02-10] MEDS: nicotine 14mg patch - 24hr TD SCH (07:49)
[2019-02-10] MEDS: metoprolol tartrate 25mg tablet PO SCH (07:52)
[2019-02-10] MEDS: enoxaparin 40mg/0.4ml syringe SUBCUT SCH (07:53)
[2019-02-10] MEDS: docusate sod 100mg capsule PO SCH (07:53)
[2019-02-10] MEDS ORDERED: HYDROchlorothiazide 25mg tablet PO SCH (08:00)
--- NOTE | 2019-02-10 09:00 | NUR ---
Discussed with patient at length importance of changing IV every 4 days. Refuses IV change. Will continue to monitor.
[2019-02-10 11:00] VITALS: BP 137/81
[2019-02-10] MEDS: LORazepam 1 MG tablet PO PRN (12:38)
[2019-02-10] MEDS ORDERED: HCTZ25T PO (17:02)
[2019-02-10] MEDS ORDERED: METO25TA6 PO (17:02)
[2019-02-10] MEDS ORDERED: HYDR-4353 PO (17:03)
--- NOTE | 2019-02-10 18:05 | NUR ---
Patient alert and oriented, IV removed with cannula intact, slight redness and white noted at site. Patient states understanding if increased redness, swelling, or fever to return to ED. Patient is in personal clothing with belongings, medications, and items from security. Patient states understanding of discharge and plan to follow up in [address] Gamino. Assisted into car and medications ordered to [facility] and [facility] prescription in left jacket pocket.
== END 2019-02-10 18:08 | disposition home or self-care (01) | DRG 120 ==
LOC: PAS IN 05:17 → EDSTATUS 07:30 → ICU 2S 14:13 → SUR 3N 02-02 18:07
PROVIDERS: ADMIT Surgery; ATTEND Surgery
PROC: 07B70ZZ Excision of Thorax Lymphatic, Open Approach (ICD-10-PCS; 2019-01-30)
PROC: 0BJ08ZZ Inspection of Tracheobronchial Tree, Via Natural or Artificial Opening Endoscopic (ICD-10-PCS; 2019-01-30)
PROC: 0B5N0ZZ Destruction of Right Pleura, Open Approach (ICD-10-PCS; 2019-01-30)
PROC: 0W9900Z Drainage of Right Pleural Cavity with Drainage Device, Open Approach (ICD-10-PCS; 2019-01-30)
PROC: 0DB50ZX Excision of Esophagus, Open Approach, Diagnostic (ICD-10-PCS; 2019-01-30)
PROC: 3E0234Z Introduction of Serum, Toxoid and Vaccine into Muscle, Percutaneous Approach (ICD-10-PCS; 2019-01-30)
PROC: 0BTC0ZZ Resection of Right Upper Lung Lobe, Open Approach (ICD-10-PCS; principal; 2019-01-30 09:25)
DX: C34.11 Malignant neoplasm of upper lobe, right bronchus or lung (principal); J93.9 Pneumothorax, unspecified; R09.02 Hypoxemia; K22.8 Other specified diseases of esophagus; Z23 Encounter for immunization
CPT/HCPCS: 36415; 36600; 71045; 71046; 80048; 80053; 82803; 82948; 83735; 84100; 85018; 85025; 85610; 85730; 86870; 86880; 86885; 86900; 86901; 86902; 86905; 87081; 90732; 93005; 93306; 94640; 94668; 94760; 97110; 97116; 97161; 97530; 97535; A4215; A4618; A6258; A6449; A7000; A7048; C1758; C9250; G0378; J0131; J0360; J0690; J1100; J1170; J1650; J1885; J1940; J2001; J2250; J2270; J2405; J2704; J2710; J3010; J3480; J3490; J7030; J7050; J7120; P9045

== ENCOUNTER 2019-02-17 21:04 | Emergency (ER) | payer MEDICAID ==
[~2019-02-17] VITALS: Ht 188 cm; Wt 139.0 kg
[~2019-02-17 21:04] MED LIST changes: +HCTZ25T PO; -LISI40TA4 PO; +METO25TA6 PO
--- NOTE | 2019-02-17 21:07 | NUR ---
PER EMS AND WITH PT ACKNOWLEDGEMENT, HE REQUESTED TO BE FLOWN TO [facility], BY PASSING [facility]IM[facility] TO HIS [facility]ENCE "BECAUSE THIS IS WHERE THEY DID MY LUNG SURGERY AND I'M REALLY NOT CONFIDENT MY LUNG IS GOING TO WORK LIKE IT'S SUPPOSED TOO." PT TALKS IN FULL SENTENCES AND REPORTS POSITIVE IMPACT WITH ADMINISTRATION OF [employer] [employer] [facility].
[2019-02-17 22:35] VITALS: BP 128/51
--- NOTE | 2019-02-17 22:41 | NUR ---
Dr. Hunter talking with Pt that he will discharge him. Pt reports frustration and that he hoped for admission for management of his anxiety because when is is severe he "can't breath". MD offered to try for admission to [facility] but Pt declined. Pt stated he told the Medics that he just wanted to go to his local hospital for treatment and not fly here, but he said then the decision was made to bring him here and he is worried that this will happen all over again.
--- NOTE | 2019-02-17 23:44 | NUR ---
DISCUSSED PLAN FOR SAFE DC WITH LUIGI JUNA AND MARYANA NICHOLS. PT TO STAY IN [facility] FROM ED WITH SHOTWELD OPERATOR CONSULT IN THE AM TO ENCOURAGE USE OF HOSPITAL IN REGION OF RESIDENCE. EDMD [place] AWARE AND IN AGREEMENT.
== END 2019-02-18 00:18 | disposition home or self-care (01) ==
LOC: ER 21:05
DX: F41.0 Panic disorder [episodic paroxysmal anxiety] (principal); R06.02 Shortness of breath; Z90.89 Acquired absence of other organs; Z98.890 Other specified postprocedural states; Z85.118 Personal history of other malignant neoplasm of bronchus and lung; Z79.899 Other long term (current) drug therapy
CPT/HCPCS: 71045; 93005; 99284

== ENCOUNTER 2019-03-03 09:33 | Outpatient (CLI) | payer MEDICAID ==
[2019-03-03 10:14] LABS: BASOPHILS % (AUTO) 0.7 % (0-1); EOSINOPHILS # (AUTO) 0.1 X10'3 (0-0.9); EOSINOPHILS % (AUTO) 1.6 % (0-6); HEMATOCRIT 37.4 % (42.0-52.0); HEMOGLOBIN 12.7 g/dl (14.0-17.9); LYMPHOCYTES # (AUTO) 1.2 X10'3 (1.1-4.8); LYMPHOCYTES % (AUTO) 22.3 % (21-51); MEAN CORPUSCULAR HEMOGLOBIN 28.6 PG (27.0-31.0); MEAN CORPUSCULAR HGB CONC 33.9 g/dL (33.0-36.5); MEAN CORPUSCULAR VOLUME 84.2 FL (78-98); MEAN PLATELET VOLUME 7.1 FL (7.4-10.4); MONOCYTES # (AUTO) 0.4 X10'3 (0-0.9); MONOCYTES % (AUTO) 7.6 % (2-12); NEUTROPHILS # (AUTO) 3.6 X10'3 (1.8-7.7); NEUTROPHILS % (AUTO) 67.8 % (42-75); PLATELET COUNT 243 X10'3 (140-440); RED BLOOD COUNT 4.44 X10'6 (4.70-6.10); RED CELL DISTRIBUTION WIDTH 14.5 % (11.5-14.5); WHITE BLOOD COUNT 5.3 X10'3 (4.5-11.0)
[2019-03-03 10:30] LABS: ALANINE AMINOTRANSFERASE 51 U/L (12-78); ALBUMIN 3.7 G/DL (3.4-5.0); ALBUMIN/GLOBULIN RATIO 0.9 (1.1-1.5); ALKALINE PHOSPHATASE 83 IU/L (46-116); ANION GAP 9 (8-16); ASPARTATE AMINO TRANSFERASE 17 U/L (10-37); BILIRUBIN,TOTAL 0.8 MG/DL (0.1-1.0); BLOOD UREA NITROGEN 10 MG/DL (7-18); BUN/CREATININE RATIO 10.5 (5.4-32.0); CALCIUM 9.5 MG/DL (8.5-10.1); CHLORIDE 103 MMOL/L (99-107); CREATININE 0.95 MG/DL (0.60-1.10); GLUCOSE 89 MG/DL (70-104); POTASSIUM 3.6 MMOL/L (3.5-5.1); SODIUM 141 MMOL/L (135-145); TOTAL CARBON DIOXIDE 29.4 MMOL/L (24-32); TOTAL PROTEIN 7.8 G/DL (6.4-8.2); eGFR 83 ML/MIN
[2019-03-04 09:28] LABS: HEP B CORE AB, IGM Negative (Negative)
== END 2019-03-03 23:59 | disposition home or self-care (01) ==
LOC: LAB 09:33
PROVIDERS: ATTEND Internal Medicine
DX: C34.11 Malignant neoplasm of upper lobe, right bronchus or lung (principal)
CPT/HCPCS: 36415; 80053; 85025; 86705; 86706

== ENCOUNTER 2019-03-13 08:19 | Day surgery (SDC) | payer MEDICAID ==
[~2019-03-13] VITALS: Ht 188 cm; Wt 128.6 kg
[2019-03-13 08:30] VITALS: BP 134/83
[2019-03-13] MEDS ORDERED: normal saline 1000ml 1,000 ML IV SCH ×2 (08:45→11:53)
[2019-03-13] MEDS ORDERED: SULF-14 PO (10:00)
[2019-03-13] MEDS ORDERED: METO-467 PO (10:00)
[2019-03-13] MEDS ORDERED: HYDR-4353 PO (10:00)
[2019-03-13] MEDS ORDERED: CYCL-1 PO (10:00)
[2019-03-13] MEDS ORDERED: HYDR25TA4 PO (10:00)
[2019-03-13] MEDS ORDERED: heparin sodium, porcine/PF 100unit/ml 5ML syringe ONE (10:58)
[2019-03-13] MEDS ORDERED: midazolam 2 mg/2 ml injection ONE (10:59)
[2019-03-13] MEDS ORDERED: LIDOcaine 1%/PF 5ML 10 MG/ML VIAL ONE (10:59)
[2019-03-13] MEDS ORDERED: fentaNYL/PF 50MCG/1 ML 2ML syringe ONE ×2 (10:59→11:27)
[2019-03-13 12:00] VITALS: BP 154/101
[2019-03-13 12:15] VITALS: BP 150/105
[2019-03-13 12:30] VITALS: BP 138/96
[2019-03-13 12:45] VITALS: BP 142/96
[2019-03-13 13:00] VITALS: BP 137/88
== END 2019-03-13 13:10 | disposition home or self-care (01) ==
LOC: SSTAY O 08:19
PROVIDERS: ATTEND Radiology Vascular & Interventional Radiology
DX: C34.11 Malignant neoplasm of upper lobe, right bronchus or lung (principal)
CPT/HCPCS: 36561; 76937; 77001; 99152; 99153; C1788; C1894; J1642; J2250; J3010; J7030; A6213